=== PATIENT | male | born 1945 | race Caucasian/White ===

== ENCOUNTER 2017-08-26 08:44 | Day surgery (SDC) | payer MEDICARE ==
[2017-08-26] VITALS (8 sets, daily range): BP systolic 112–131; BP diastolic 71–82; PULSE 70–86; TEMP 97.7–99.2
[~2017-08-26] VITALS: Ht 182.9 cm; Wt 92.8 kg
[2017-08-26] MEDS ORDERED: COUMADIN 77.5 MG/TAB PO (09:03)
[2017-08-26] MEDS ORDERED: [UNRECOGNIZED DRUG - OTHER] PO (09:04)
[2017-08-26] MEDS ORDERED: TOPROL XL 25MG25 MG PO (09:05)
== END 2017-08-26 12:50 | disposition home or self-care (01) ==
LOC: SDCO 08:44
DX: Z12.11 Encounter for screening for malignant neoplasm of colon (principal); Z86.010 Personal history of colon polyps; D12.2 Benign neoplasm of ascending colon; K57.30 Diverticulosis of large intestine without perforation or abscess without bleeding
CPT/HCPCS: OP; J2250; J3010; J7030

== ENCOUNTER 2019-02-09 14:17 | Emergency (ER) | payer MEDICARE ==
[~2019-02-09] VITALS: Ht 182.9 cm; Wt 82.3 kg
[~2019-02-09 14:17] MED LIST: COUMADIN 77.5 MG/TAB PO; TOPROL XL 25MG25 MG PO; [UNRECOGNIZED DRUG - OTHER] PO
[2019-02-09 14:32] VITALS: TEMP 97.5
[2019-02-09 15:15] LABS: BASO # 0.1 (0.0-0.2); EOS # 0.2 (0.0-0.7); EOS % 2.8 % (0-4.0); GRAN # 3.9 (1.4-6.5); GRAN % 63.7 % (42.2-75.2); HEMATOCRIT 42.4 % (42.0-52.0); HEMOGLOBIN 14.1 g/dl (13.5-18.0); LYMPH # 1.5 (1.2-3.4); LYMPH % 23.7 % (20.0-51.0); MEAN CELL VOLUME 92 fl (80.0-100.0); MEAN CORPUSCULAR HEMOGLOBIN 31 pg (27.0-31.0); MEAN CORPUSCULAR HGB CONC 33 g/dl (33.0-37.0); MEAN PLATELET VOLUME 11.8 fl (7.4-10.4); MONO # 0.5 (0.1-0.6); MONO % 8.5 % (1.7-9.3); PLATELET COUNT 164 K/mm3 (130-400); RED BLOOD COUNT 4.59 M/mm3 (4.20-5.60); REDCELL DISTRIBUTION WIDTH-CV 12.4 % (11.5-14.5)
[2019-02-09 15:20] LABS: INR 2.2 (0.8-3.0); PROTHROMBIN TIME 26.3 SECONDS (9.7-12.8)
[2019-02-09 15:29] LABS: ALANINE AMINOTRANSFERASE 39 U/L (21-72); ALBUMIN 4.1 gm/dL (3.5-5.0); ALKALINE PHOSPHATASE 56 U/L (50-136); ANION GAP 7 mmol/L (7-16); AST,SGOT 30 U/L (15-37); BILIRUBIN,TOTAL 0.4 mg/dL (0.0-1.0); BLOOD UREA NITROGEN 17 mg/dL (9-20); CALCIUM 9.3 mg/dL (8.4-10.2); CARBON DIOXIDE 26 mmol/L (22-30); CHLORIDE 107 mmol/L (98-107); CREATININE, serum 0.98 (0.66-1.25); GLUCOSE 85 mg/dL (74-106); POTASSIUM 4.5 mmol/L (3.4-5.0); SODIUM 140 mmol/L (137-145); TOTAL PROTEIN 6.8 gm/dL (6.4-8.2)
[2019-02-09 15:30] LABS: C-REACTIVE PROTEIN < 0.5 mg/dL (0.0-0.9)
[2019-02-09 15:37] LABS: TROPONIN-I < 0.012 ng/mL (0.000-0.035)
[2019-02-09 18:00] VITALS: BP 132/78; PULSE 46
[2019-02-09] MEDS ORDERED: PRINIVIL10 MG PO (18:18)
== END 2019-02-09 18:30 | disposition home or self-care (01) ==
LOC: COL.ER 14:17
PROVIDERS: Emergency Medicine
DX: R00.1 Bradycardia, unspecified (principal); R47.01 Aphasia; I10 Essential (primary) hypertension; Z79.01 Long term (current) use of anticoagulants; Z95.2 Presence of prosthetic heart valve; Z79.82 Long term (current) use of aspirin
CPT/HCPCS: J7030; Q9967